=== PATIENT | male | born 1990 | race Two or more races ===

== ENCOUNTER 2019-06-07 11:04 | Emergency (ER) | payer BC, OTHER ==
[2019-06-07] MEDS ORDERED: Aspirin 81 MG Tab.Chew PO ONE (11:39)
--- NOTE | 2019-06-07 12:17 | EDM.PDOC ---
ED HPI GENERAL MEDICAL PROBLEM - General Chief Complaint: Chest Pain Stated Complaint: CHEST PAIN Time Seen by Provider: 06/07/19 11:05 Source of Information: Reports: Patient History Limitations: Reports: No Limitations - History of Present Illness INITIAL COMMENTS - FREE TEXT/NARRATIVE: Patient presented to the ED because of chest pain over the left sternal area, sharp, 06/14. There is no associated N/V, dyspnea or diaphoresis. He c/o peripheral numbness an tingling. He though it's due to his anxiety. CHEST Pain Score (Numeric/FACES): 4 - Related Data Allergies Allergy/AdvReac Type Severity Reaction Status Date / Time diphenhydramine Allergy Rash Verified 06/07/19 11:31 [From Benadryl] Sulfa (Sulfonamide Allergy Rash Verified 06/07/19 11:31 Antibiotics) Home Meds: Home Meds NK [No Known Home Meds] 06/07/19 [History] Past Medical History Psychiatric History: Reports: Anxiety - Past Surgical History GI Surgical History: Reports: Appendectomy Social & Family History - Family History Family Medical History: Unobtainable - Tobacco Use Smoking Status *Q: Current Every Day Smoker Years of Tobacco use: 9 Packs/Tins Daily: 0.5 - Caffeine Use Caffeine Use: Reports: Coffee - Recreational Drug Use Recreational Drug Use: No ED ROS GENERAL - Review of Systems Review Of Systems: See Below Constitutional: Reports: No Symptoms HEENT: Reports: No Symptoms Respiratory: Reports: No Symptoms Cardiovascular: Reports: Chest Pain Endocrine: Reports: No Symptoms GI/Abdominal: Reports: No Symptoms Skin: Reports: No Symptoms Neurological: Reports: No Symptoms Psychiatric: Reports: Anxiety Hematologic/Lymphatic: Reports: No Symptoms ED EXAM, GENERAL - Physical Exam Exam: See Below Exam Limited By: No Limitations General Appearance: Alert, No Apparent Distress Ears: Normal External Exam, Normal Canal, Hearing Grossly Normal Nose: Normal Inspection, Normal Mucosa Throat/Mouth: Normal Inspection, Normal Lips, Normal Teeth Head: Atraumatic, Normocephalic Neck: Normal Inspection, Supple, Non-Tender, Full Range of Motion Respiratory/Chest: No Respiratory Distress, Lungs Clear, Normal Breath Sounds Cardiovascular: Normal Peripheral Pulses, Regular Rate, Rhythm, No Edema, No Gallop GI/Abdominal: Normal Bowel Sounds, Soft, Non-Tender, No Organomegaly, No Distention, No Abnormal Bruit Extremities: Normal Inspection, Normal Range of Motion, Non-Tender Course - Vital Signs Text/Narrative:: labs/EKG was reviewed with the patient and verbalized ful understanding EKG-NSR Trop-neg ASA 324 mg po x1 Ativan 1 mg po x1 Last Recorded V/S: Last Vital Signs Temp 36.9 C 06/07/19 12:33 Pulse 75 06/07/19 12:33 Resp 15 06/07/19 12:33 BP 124/72 06/07/19 12:33 Pulse Ox 100 06/07/19 12:33 - Orders/Labs/Meds Orders: Active Orders 24 hr Category Date Time Status EKG Documentation Completion [RC] ASDIRECTED Care 06/07/19 11:29 Active EKG 12 Lead [EK] Routine Ther 06/07/19 11:29 Ordered Labs: Laboratory Tests 06/07/19 06/07/19 06/07/19 Range/Units 11:40 11:40 11:40 WBC 8.4 (4.5-12.0) X10-3/uL RBC 5.61 (4.30-5.75) x10(6)uL Hgb 16.0 (13.5-17.8) g/dL Hct 46.5 (30.0-51.3) % MCV 83.0 (80-96) fL MCH 28.5 (27.7-33.6) pg MCHC 34.3 (32.2-35.4) g/dL RDW 13.0 (11.5-15.5) % Plt Count 199 (125-369) X10(3)uL MPV 8.7 (7.4-10.4) fL Neut % (Auto) 62.3 (46-82) % Lymph % (Auto) 30.2 (13-37) % Burt % (Auto) 6.0 (4-12) % Eos % (Auto) 1 (1.0-5.0) % Baso % (Auto) 1 (0-2) % Neut # (Auto) 5.2 (1.6-8.3) # Lymph # (Auto) 2.5 (0.6-5.0) # Burt # (Auto) 0.5 (0.0-1.3) # Eos # (Auto) 0.1 (0.0-0.8) # Baso # (Auto) 0.1 (0.0-0.2) # Sodium 142 (135-145) mmol/L Potassium 4.3 (3.5-5.3) mmol/L Chloride 104 (100-110) mmol/L Carbon Dioxide 28 (21-32) mmol/L BUN 10 (7-18) mg/dL Creatinine 0.9 (0.70-1.30) mg/dL Est Cr Clr Drug Dosing 123.29 mL/min Estimated GFR (MDRD) > 60 (>60) BUN/Creatinine Ratio 11.1 (9-20) Glucose 103 (80-116) mg/dL Calcium 9.2 (8.6-10.2) mg/dL Troponin I 4.0 (4.0-60.3) pg/mL Meds: Medications Discontinued Medications Generic Name Dose Route Start Last Admin Trade Name Freq PRN Reason Stop Dose Admin Aspirin 324 mg 06/07/19 11:39 06/07/19 11:43 Aspirin PO 06/07/19 11:40 324 mg ONETIME ONE Administration Lorazepam 1 mg 06/07/19 12:20 06/07/19 12:27 Ativan PO 06/07/19 12:21 1 mg ONETIME ONE Administration Departure - Departure Time of Disposition: 12:20 Disposition: Home, Self-Care 01 Condition: Good Clinical Impression: Atypical chest pain Instructions: Generalized Anxiety Disorder, Adult, Nonspecific Chest Pain, Adult Referrals: PCP,None [Primary Care Provider] - Forms: ED Department Discharge Additional Instructions: please read discharge instructions on atypical chest pain apply ice or heat whichever makes the pain feel better take ibuprofen 800 mg with tylneol 1000 mg every 8 hours as needed for pain follow up as needed Sepsis Event Note - Evaluation Sepsis Screening Result: No Definite Risk - Focused Exam Date Exam was Performed: 06/08/19 Time Exam was Performed: 10:39 - My Orders Last 24 Hours: My Active Orders 06/07/19 11:29 EKG Documentation Completion [RC] ASDIRECTED EKG 12 Lead [EK] Routine - Assessment/Plan Last 24 Hours: My Active Orders 06/07/19 11:29 EKG Documentation Completion [RC] ASDIRECTED EKG 12 Lead [EK] Routine
[2019-06-07] MEDS ORDERED: LORazepam 1 MG Tab PO ONE (12:20)
== END 2019-06-07 12:33 | disposition home or self-care (01) ==
LOC: FB.ED 11:04
DX: R07.89 Other chest pain (principal); F17.210 Nicotine dependence, cigarettes, uncomplicated; Z88.2 Allergy status to sulfonamides; Z88.8 Allergy status to other drugs, medicaments and biological substances
CPT/HCPCS: 36415; 80048; 84484; 85025; 93005; 99285; A9270; 99283